=== PATIENT | female | born 1940 | race Caucasian/White ===

== ENCOUNTER 2017-09-09 11:16 | Outpatient (CLI) | payer MEDICARE, MEDICAID | END 2017-09-09 23:59 | disposition home or self-care (01) | LOC: CT 11:16 | PROVIDERS: ATTEND Anesthesiology | DX: K57.30 Diverticulosis of large intestine without perforation or abscess without bleeding (principal); K44.9 Diaphragmatic hernia without obstruction or gangrene; N28.1 Cyst of kidney, acquired; I25.10 Atherosclerotic heart disease of native coronary artery without angina pectoris; I70.0 Atherosclerosis of aorta; J98.11 Atelectasis; M47.896 Other spondylosis, lumbar region; Z90.710 Acquired absence of both cervix and uterus | CPT/HCPCS: 72148-TC ==